=== PATIENT | male | born 1960 | race Caucasian/White ===

== ENCOUNTER 2017-03-07 07:13 | Emergency (ER) | payer OTHER ==
[~2017-03-07] VITALS: Ht 177.8 cm; Wt 68.0 kg
[2017-03-07 07:34] VITALS: BP 149/72
== END 2017-03-07 09:41 | disposition home or self-care (01) ==
LOC: ER 07:13
DX: S20.219A Contusion of unspecified front wall of thorax, initial encounter (principal); J43.9 Emphysema, unspecified; Z88.6 Allergy status to analgesic agent; W19.XXXA Unspecified fall, initial encounter; Y93.89 Activity, other specified; Y92.89 Other specified places as the place of occurrence of the external cause; Y99.8 Other external cause status
CPT/HCPCS: 71020; 71250; 93005